=== PATIENT | male | born 1935 | race Caucasian/White ===

== ENCOUNTER → 2020-04-10 | Outpatient (CLI) | payer MEDICARE, OTHER ==
[~2020-04-10] MED LIST: AMLO-150 PO; ASPI81TA45 PO; ATOR-2 PO; ATOR20TA37 PO; CARV6.2512 PO; CYCL-259 PO; FINA5TAB4 PO; FURO-93 PO; GLIM2TAB7 PO; GLIP10TA13 PO; LISI-170 PO; MELO15TA24 PO; NITR0.4T28 SL; OMEP-110 PO; SITA100T PO; SPIR25TA PO; TEMA15CA PO; TICA90TA PO
== END | disposition home or self-care (01) ==
LOC: CFH 13:05
PROVIDERS: ATTEND Internal Medicine Cardiovascular Disease
DX: I08.8 Other rheumatic multiple valve diseases (principal); I11.9 Hypertensive heart disease without heart failure; I25.5 Ischemic cardiomyopathy
CPT/HCPCS: 93306; 93356

== ENCOUNTER 2020-05-16 06:53 | Observation (INO) | payer MEDICARE, OTHER ==
[~2020-05-16] VITALS: Ht 180.3 cm; Wt 81.1 kg
[~2020-05-16 06:53] MED LIST changes: -CYCL-259 PO; +CYCL10TA2 PO
[2020-05-16 07:22] VITALS: BP 126/78
[2020-05-16] MEDS: SODIUM CHLORIDE 0.9% 1,000 ML IV SCH ×2 (07:30→13:27)
[2020-05-16] MEDS ORDERED: LIDOCAINE 2%, 20ML ONE (07:40)
[2020-05-16] MEDS ORDERED: CLOP75TA52 PO (07:47)
[2020-05-16 07:53] LABS: BASOPHILS % (AUTO) 1 % (0-1); EOSINOPHILS % (AUTO) 1 % (1-7); LYMPHOCYTES % (AUTO) 26 % (22-44); MEAN CORPUSCULAR HEMOGLOBIN 31.8 pg (27.5-34.5); MEAN CORPUSCULAR HGB CONC 33.9 g/dL (33.2-36.2); MEAN PLATELET VOLUME 7.8 fL (7.4-10.4); MONOCYTES % (AUTO) 10 % (2-9); NEUTROPHILS % (AUTO) 61 % (42-75); PLATELET COUNT 192 x10^3/uL (130-400); RED BLOOD COUNT 4.27 x10^6/uL (4.38-5.82); RED CELL DISTRIBUTION WIDTH 14.7 % (9.4-14.8)
[2020-05-16 07:54] LABS: MD NO
[2020-05-16] MEDS ORDERED: FENTANYL PF 100 MCG/2ML ONE ×2 (07:59→08:43)
[2020-05-16 08:06] LABS: ANION GAP 6 mmol/L (5-15); CALCIUM 8.7 mg/dL (8.5-10.1); CHLORIDE 111 mmol/L (98-107); CREATININE 1.47 mg/dL (0.7-1.3)
[2020-05-16] MEDS ORDERED: EPINEPHRINE 1 MG/ML, 1ML ONE (08:06)
[2020-05-16] MEDS ORDERED: CEFAZOLIN 1,000 MG ONE ×2 (08:09→08:28)
[2020-05-16] MEDS ORDERED: PROPOFOL 10 MG/ML, 20ML ONE (08:28)
[2020-05-16] MEDS ORDERED: ONDANSETRON 2MG/ML, 2ML ONE (08:28)
[2020-05-16] MEDS ORDERED: ROCURONIUM 10MG/ML,5ML ONE (08:28)
[2020-05-16] MEDS ORDERED: DEXAMETHASONE 4 MG/ML, 1ML ONE (08:28)
[2020-05-16] MEDS ORDERED: SUGAMMADEX 200 MG/2 ML IVPush ONE (08:28)
[2020-05-16] MEDS ORDERED: SUCCINYLCHOLINE 20 MG/ML, 10ML ONE (08:28)
[2020-05-16] MEDS ORDERED: ACETAMINOPHEN 325 MG TABLET PO PRN (10:00)
[2020-05-16] MEDS ORDERED: HYDROmorphone 1 MG/ML, 1ML INJ IVPush PRN (10:00)
[2020-05-16] MEDS ORDERED: OXYcodone 5 MG/5 ML ORAL.SOL UDC PO PRN (10:00)
[2020-05-16] MEDS ORDERED: FENTANYL PF 100 MCG/2ML IV PRN (10:00)
[2020-05-16] MEDS ORDERED: Hold all anticoagulants for 24 hours MC PRN (10:00)
[2020-05-16] MEDS ORDERED: ONDANSETRON 2MG/ML, 2ML IVPush PRN (10:00)
[2020-05-16] MEDS ORDERED: PROMETHAZINE 25 MG/ML, 1ML IVPush PRN (10:00)
[2020-05-16] MEDS ORDERED: LABETALOL 5MG/ML, 20ML IV PRN (10:00)
[2020-05-16] MEDS ORDERED: EPHEDRINE 50 MG/ML, 1ML IVPush PRN (10:00)
[2020-05-16] MEDS ORDERED: hydrALAzine 20 MG/ML, 1ML IV PRN (10:00)
[2020-05-16] MEDS ORDERED: ACETAMINOPHEN 325 MG TABLET ONE (11:11)
[2020-05-16 13:43] VITALS: BP 130/74
[2020-05-16] MEDS: CEFAZOLIN PMX 1GM/50ML 50 ML IVPB SCH (15:53)
[2020-05-16] MEDS ORDERED: TEMAZEPAM 30 MG CAPSULE PO PRN (17:00)
[2020-05-16 20:03] VITALS: BP 126/70
[2020-05-16] MEDS: SODIUM CHLORIDE FLUSH 10ML SYR IVF SCH (20:57)
[2020-05-16] MEDS: ACETAMINOPHEN 325 MG TABLET PO PRN (21:52)
[2020-05-17] MEDS: CEFAZOLIN PMX 1GM/50ML 50 ML IVPB SCH
[2020-05-17 01:26] VITALS: BP 112/53
[2020-05-17 07:33] VITALS: BP 134/70
[2020-05-17] MEDS: ACETAMINOPHEN 325 MG TABLET PO PRN (07:47)
[2020-05-17] MEDS: SODIUM CHLORIDE FLUSH 10ML SYR IVF SCH (07:53)
[2020-05-17] MEDS ORDERED: ACET325T26 PO (08:36)
== END 2020-05-17 11:10 | disposition home or self-care (01) ==
LOC: CACL 06:53 → ORIP 09:38 → 5SO 13:25 → DCLOUNGE 05-17 10:45
PROVIDERS: ADMIT Internal Medicine Cardiovascular Disease; ATTEND Internal Medicine Cardiovascular Disease
DX: I25.10 Atherosclerotic heart disease of native coronary artery without angina pectoris (principal); Z20.822 Contact with and (suspected) exposure to COVID-19; I25.5 Ischemic cardiomyopathy; I49.01 Ventricular fibrillation; I45.2 Bifascicular block; I11.0 Hypertensive heart disease with heart failure; I50.21 Acute systolic (congestive) heart failure; E78.5 Hyperlipidemia, unspecified; I34.0 Nonrheumatic mitral (valve) insufficiency; E78.2 Mixed hyperlipidemia; E11.65 Type 2 diabetes mellitus with hyperglycemia; M21.372 Foot drop, left foot; Z87.891 Personal history of nicotine dependence; Z79.82 Long term (current) use of aspirin; Z79.899 Other long term (current) drug therapy; Z98.61 Coronary angioplasty status; Z86.74 Personal history of sudden cardiac arrest
CPT/HCPCS: 33225; 33249; 36415; 71045; 71046; 80048; 85025; 87635; 93005; 96365; 96366; C1769; C1779; C1882; C1887; C1892; C1895; C1900; G0378; J0171; J0330; J0690; J1100; J2405; J2704; J3010; J3490; Q9967